=== PATIENT | female | born 1970 | race American Indian/Alaskan Native ===

== ENCOUNTER 2019-06-29 08:36 | Outpatient (CLI) | payer BC ==
--- NOTE | 2019-06-29 10:31 | Fluoroscopy Report ---
UPPER GI HISTORY: K21.0) Gastro-esophageal reflux disease with esophagitis. Evaluate LAP-BAND COMPARISON: None at this facility. TECHNIQUE: Single and double contrast barium technique utilized to evaluate the esophagus, stomach, and duodenal C-loop. FINDINGS: To begin the exam, swallowing was evaluated in the lateral position under direct fluorosco py. Swallowing was normal. The esophagus is normal caliber and mucosal pattern. No evidence for stricture, ring or web. No hiata l hernia. No reflux was witnessed during this exam. A lap band device appears to be in good position. There is no evidence for slippage or erosion. There is easy passage of the contrast agent through the lap band. The gastric cavity is normal mucosal pattern throughout. No evidence for gastritis or ulceration. The duodenal bulb and duodenal sweep are normal. IMPRESSION: Essentially normal exam. The lap band device appears in good position and without abnorm ality. Fluoroscopic time: 1.9 minutes Number of fluoroscopic images: 33 Signer Name: Jaden Handy Jr, MD Signed: 06/29/2019 10:26 AM Workstation Name: [id number]
== END 2019-06-29 08:37 | disposition home or self-care (01) ==
LOC: FLUORO 08:36
PROVIDERS: ATTEND Surgery
DX: K21.0 Gastro-esophageal reflux disease with esophagitis (principal); R12 Heartburn
CPT/HCPCS: 74247

== ENCOUNTER 2019-12-20 08:41 | Outpatient (CLI) | payer BC ==
--- NOTE | 2019-12-20 14:21 | Magnetic Resonance Report ---
BILATERAL BREAST MR WITHOUT AND WITH GADOLINIUM INDICATION: Left mastodynia. COMPARISONS: None available. TECHNIQUE: Axial 1.0 mm T1 without, axial high-resolution 2.0 mm T2 and axial 1.0 mm dynamic vibrant high-resolution postcontrast T1 fat saturation sequences on a 1.5 Giovanna magnet. The examination was p erformed with an 8-channel dedicated [place] breast coil. Post-processing with CAD and subtraction was performed on an [employer] workstation. 19.0 cc of MultiHance was injected without incident for the c ontrast portion of the exam. Consent was obtained prior to the administration of the contrast. FINDINGS: RIGHT BREAST: Minimal background parenchymal enhancement. No mass or suspicious enhancement. No suspi cious lymph nodes. LEFT BREAST: Minimal background parenchymal enhancement. No mass or suspicious enhancement. No suspic ious lymph nodes. IMPRESSION: Negative study BI-RADS Category 1: Negative Signer Name: Carlton Song MD Signed: 12/20/2019 2:17 PM Workstation Name: [id number]
== END 2019-12-20 08:42 | disposition home or self-care (01) ==
LOC: SPVIMAG 08:41
PROVIDERS: ATTEND Surgery
DX: N64.4 Mastodynia (principal)
CPT/HCPCS: A9577; C8908; 77049